=== PATIENT | female | born 1990 | race Caucasian/White ===

== ENCOUNTER 2020-12-20 11:04 | Day surgery (SDC) | payer BC ==
[~2020-12-20 11:04] MED LIST: Bupivacaine 0.25% 10 ML SDV ONE; EPINEPHrine 1 MG/ML 30 ML MDV IRR SCH; EPINEPHrine 1 MG/ML SDV ONE; Lactated Ringers 1,000 ML IV SCH; Lidocaine 1%/Sod Bicarbonate in NS 8.4% 1 ML Syringe IDERM PRN; Sodium Chloride 0.9% 10 ML Syringe FLUSH PRN; Triamcinolone Acetonide 40 MG/ML 1 ML SDV ONE
[2020-12-20] MEDS ORDERED: fentaNYL 250 MCG/5 ML SDV ONE (11:24)
[2020-12-20] MEDS ORDERED: Midazolam 1 MG/ML 2 ML SDV ONE (11:24)
[2020-12-20] MEDS ORDERED: Ondansetron 4 MG/2 ML SDV ONE (11:24)
[2020-12-20] MEDS ORDERED: Propofol 200 MG/20 ML SDV ONE (11:24)
[2020-12-20] MEDS ORDERED: Lidocaine 1% 4 ML ONE (11:25)
[2020-12-20] MEDS ORDERED: ceFAZolin 1 GM Vial ONE (11:25)
--- NOTE | 2020-12-20 11:32 | PCM.PREANE ---
Preanesthetic Assessment - Procedure Proposed Procedure: Right knee video arthroscopy - Anesthesia/Transfusion/Family Hx Anesthesia History: Prior Anesthesia Without Reaction Family History of Anesthesia Reaction: No Transfusion History: No Prior Transfusion(s) - Review of Systems General: No Symptoms Pulmonary: No Symptoms Cardiovascular: No Symptoms, Edema Gastrointestinal: No Symptoms Neurological: No Symptoms Other: Reports: None - Physical Assessment NPO Status Date: 12/19/20 NPO Status Time: 00:00 Height: 1.7 m Weight: 70.7 kg ASA Class: 1 Mental Status: Alert & Oriented x3 Airway Class: Mallampati = 1 Dentition: Reports: Normal Dentition Thyro-Mental Finger Breadths: 3 Mouth Opening Finger Breadths: 3 ROM/Head Extension: Full Lungs: Clear to Auscultation Cardiovascular: Regular Rate, Regular Rhythm - Allergies Allergies/Adverse Reactions: Allergies Allergy/AdvReac Type Severity Reaction Status Date / Time No Known Allergies Allergy Verified 12/19/20 13:19 - Blood Blood Available: No Product(s) Available: None - Anesthesia Plan Pre-Op Medication Ordered: None - Acknowledgements Anesthesia Type Planned: General Anesthesia Pt an Appropriate Candidate for the Planned Anesthesia: Yes Alternatives and Risks of Anesthesia Discussed w Pt/Guardian: Yes Pt/Guardian Understands and Agrees with Anesthesia Plan: Yes PreAnesthesia Questionnaire HEENT History: Reports: None Respiratory History: Reports: None Gastrointestinal History: Reports: None Genitourinary History: Reports: None CRISIS MANAGER History: Reports: Other (See Below) Other OB/BYN History: endometriosis with surgery Musculoskeletal History: Reports: None Neurological History: Reports: None Psychiatric History: Reports: None Endocrine/Metabolic History: Reports: None Hematologic History: Reports: None Immunologic History: Reports: None Oncologic (Cancer) History: Reports: None Dermatologic History: Reports: None - Infectious Disease History Infectious Disease History: Reports: None - Past Surgical History Head Surgeries/Procedures: Reports: None HEENT Surgical History: Reports: Tonsillectomy Cardiovascular Surgical History: Reports: Vascular Surgery Respiratory Surgical History: Reports: None GI Surgical History: Reports: None Female Surgical History: Reports: None Male Surgical History: Reports: None Endocrine Surgical History: Reports: None Neurological Surgical History: Reports: None Musculoskeletal Surgical History: Reports: None Oncologic Surgical History: Reports: None Dermatological Surgical History: Reports: None - SUBSTANCE USE Tobacco Use Status *Q: Never Tobacco User Tobacco Use Within Last Twelve Months: No Second Hand Smoke Exposure: No Days Per Week of Alcohol Use: 1 Number of Drinks Per Day: 2 Total Drinks Per Week: 2 Recreational Drug Use History: No - HOME MEDS Home Medications: Home Meds Aspirin [Aspirin EC] 325 mg PO BID #84 tab 12/19/20 [Rx] Ethinyl Estradiol/Drospirenone [Ocella 3 MG-0.03 MG] 1 tab PO DAILY 12/19/20 [History] Hydrocodone/Acetaminophen [HYDROcodone-Acetaminophen 5-325 MG] 1 - 2 each PO Q6H PRN #12 tablet 12/19/20 [Rx] - CURRENT (IN HOUSE) MEDS Current Meds: Current Medications Epinephrine HCl (Epinephrine 1 Mg/Ml 30 Ml Mdv) 3 mg IRR ONETIME JASMIN Stop: 12/20/20 15:00 Lactated Ringer's (Ringers, Lactated) 1,000 mls @ 125 mls/hr IV ASDIRECTED JASMIN Stop: 12/20/20 23:00 Lidocaine/Sodium Bicarbonate (Lidocaine 1%/Sod Bicarbonate In Ns 8.4% 1 Ml Syringe) 0.25 ml IDERM ONETIME PRN PRN Reason: Prior to IV Start Stop: 12/20/20 18:00 Sodium Chloride (Sodium Chloride 0.9% 10 Ml Syringe) 10 ml FLUSH ASDIRECTED PRN PRN Reason: Keep Vein Open Stop: 12/20/20 18:00 Discontinued Medications Bupivacaine HCl (Bupivacaine 0.25% 10 Ml Sdv) Confirm Administered Dose 10 ml .ROUTE .STK-MED ONE Stop: 12/20/20 11:05 Epinephrine HCl (Epinephrine 1 Mg/Ml Sdv) Confirm Administered Dose 3 mg .ROUTE .STK-MED ONE Stop: 12/20/20 11:05 Triamcinolone Acetonide (Triamcinolone Acetonide 40 Mg/Ml 1 Ml Sdv) Confirm Administered Dose 40 mg .ROUTE .STK-MED ONE Stop: 12/20/20 11:05
[2020-12-20] MEDS ORDERED: Lactated Ringers 1,000 ML ONE (12:49)
[2020-12-20] MEDS ORDERED: Ketorolac 30 MG/ML SDV ONE (12:50)
[2020-12-20] MEDS ORDERED: fentaNYL 100 MCG/2 ML SDV IVPUSH STA (13:18)
[2020-12-20] MEDS ORDERED: fentaNYL 100 MCG/2 ML SDV IVPUSH PRN (13:20)
[2020-12-20] MEDS ORDERED: HYDROmorphone 0.5 MG/0.5 ML Syringe IVPUSH PRN (13:20)
--- NOTE | 2020-12-20 13:22 | PCM.POSTAN ---
POST ANESTHESIA ASSESSMENT - MENTAL STATUS Mental Status: Alert, Oriented - VITAL SIGNS Vital Signs: Last Vital Signs Temp 37.4 C 12/20/20 11:10 Pulse 87 12/20/20 11:10 Resp 17 12/20/20 11:10 BP 113/97 H 12/20/20 11:10 Pulse Ox 96 12/20/20 11:10 - RESPIRATORY Respiratory Status: Respiratory Rate WNL, Airway Patent, O2 Saturation Stable, Supplemental Oxygen - CARDIOVASCULAR CV Status: Pulse Rate WNL, Blood Pressure Stable - GASTROINTESTINAL GI Status: No Symptoms - PAIN Pain Score: 8 - POST OP HYDRATION Hydration Status: Adequate & Stable
[2020-12-20] MEDS ORDERED: Acetaminophen/HYDROcodone 325-5 MG Tab PO PRN (13:37)
--- NOTE | 2020-12-20 15:04 | PCM48HPAN ---
Post Anesthesia Note - EVALUATION WITHIN 48HRS OF ANESTHETIC Vital Signs in Normal Range: Yes Patient Participated in Evaluation: Yes Respiratory Function Stable: Yes Airway Patent: Yes Cardiovascular Function Stable: Yes Hydration Status Stable: Yes Pain Control Satisfactory: Yes Nausea and Vomiting Control Satisfactory: Yes Mental Status Recovered: Yes Vital Signs: Last Vital Signs Temp 36.7 C 12/20/20 14:00 Pulse 71 12/20/20 14:30 Resp 16 12/20/20 14:30 BP 124/89 12/20/20 14:30 Pulse Ox 97 12/20/20 14:30
[2020-12-20] MEDS ORDERED: Ketorolac 15 MG/ML SDV IVPUSH ONE (18:39)
[2020-12-20] MEDS ORDERED: Acetaminophen/HYDROcodone 325-5 MG Tab PO ONE (18:40)
[2020-12-20] MEDS ORDERED: Ondansetron 4 MG Tab.DIS PO ONE (18:45)
[2020-12-20] MEDS ORDERED: Albuterol 0.083% 2.5 MG/3 ML Neb Soln NEB ONE (18:45)
--- NOTE | 2020-12-31 17:44 | PCM.OPNOTE ---
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
--- NOTE | 2020-12-31 18:25 | OR ---
DATE OF OPERATION: 12/20/2020 SURGEON: Bunny Ronquillo MD OPERATION PERFORMED: Right knee video arthroscopy with plica resection and partial fat pad resection. PREOPERATIVE DIAGNOSIS: Right knee plica syndrome. POSTOPERATIVE DIAGNOSIS: Right knee plica syndrome. ANESTHESIA: Technique: General LMA with local. ANESTHESIA PROVIDER: Leandro Menchaca CRNA ASSISTANTS: Rosita Garcia PA-C ESTIMATED BLOOD LOSS: 5 mL. COMPLICATIONS: None. CONDITION: Stable. DESCRIPTION OF PROCEDURE: The patient was identified in the preoperative holding area. Proper site was marked and identified by the surgeon. The patient was taken back to the operating theater where after adequate anesthesia, the patient's right lower extremity had a nonsterile tourniquet applied and was placed in a C-clamp de leon. Left lower extremity was placed in a well leg de leon. Foot of the bed was then lowered. Right lower extremity was then sterilely prepped and draped in the usual sterile fashion. OR time-out was performed. The patient received 2 g IV Ancef. Right lower extremity was exsanguinated. Tourniquet was insufflated to 250 mmHg. Anterolateral portal incision was made. Scope trocar was introduced. The patient was noted to have significant hypertrophy as well as synovitis of the fat pad. She was noted to have a superior plica as well as the medial plica. At this time, attention was turned to medial compartment. Anteromedial portal was created. The medial compartment showed just a small amount of chondromalacia on the medial femoral condyle. Otherwise, no meniscal tear was noted. ACL was intact in the notch. Lateral compartment showed no chondromalacia changes and no lateral meniscus tear. At this time, the superior as well as medial plica were then resected as well as partial resection of the fat pad back to a stable rim so it would not impinge in the patellofemoral joint. Excess saline was drained from the knee. 3-0 nylon sutures were used for closure of the skin. 0.25% Marcaine was injected. The patient was placed in a sterile, soft dressing and sent to the PACU in stable condition. MMODAL /[id number]
== END 2020-12-20 20:24 | disposition home or self-care (01) ==
LOC: JD.SDS 11:04 → JD.OB 17:55 → JD.SDS 20:24
PROVIDERS: ATTEND Orthopaedic Surgery
DX: M67.51 Plica syndrome, right knee (principal); Z98.890 Other specified postprocedural states; Z79.899 Other long term (current) drug therapy; Z20.822 Contact with and (suspected) exposure to COVID-19
CPT/HCPCS: 29875; 81025; 94640; A9270; J0171; J0690; J1170; J1885; J2250; J2405; J2704; J3010; J3301; J3490; J7120; 01400

== ENCOUNTER 2022-09-19 17:33 | Inpatient (IN) | payer BC ==
[2022-09-19] MEDS ORDERED: Citric Acid/Sodium Citrate Solution 30 ML Cup PO ONE (18:41)
[2022-09-19] MEDS ORDERED: ceFAZolin 1 GM in Sodium Chloride 0.9% 50 ML IV ONE (18:41)
[2022-09-19] MEDS ORDERED: Ondansetron 4 MG/2 ML SDV IVPUSH PRN ×2 (18:41→19:42)
[2022-09-19] MEDS ORDERED: Metoclopramide 10 MG/2 ML SDV IVPUSH ONE (18:41)
[2022-09-19] MEDS ORDERED: Sodium Chloride 0.9% 10 ML Syringe FLUSH PRN (18:41)
[2022-09-19] MEDS ORDERED: Bupivacaine 0.5% 30 ML SDV ONE (18:44)
[2022-09-19] MEDS ORDERED: Oxytocin/Lactated Ringers 10 UNIT/1,000 ML BAG IV SCH (18:45)
[2022-09-19] MEDS ORDERED: Lactated Ringers 1,000 ML IV SCH (18:45)
[2022-09-19 18:57] LABS: BASOPHILS ABSOLUTE AUTO 0.01 K/mm3 (0.01-0.08); BASOPHILS PERCENT AUTO 0.1 % (0.1-1.2); EOSINOPHILS ABSOLUTE AUTO 0.01 K/mm3 (0.04-0.36); EOSINOPHILS PERCENT AUTO 0.1 (0.7-5.8); HEMATOCRIT 36.1 % (34.1-44.9); HEMOGLOBIN 11.4 gm/dl (11.2-15.7); IMMATURE GRAN ABSOLUTE AUTO 0.08 K/mm3 (0.00-0.10); IMMATURE GRAN PERCENT AUTO 0.9 % (<=1.0); LYMPHOCYTES ABSOLUTE AUTO 1.89 K/mm3 (1.18-3.74); LYMPHOCYTES PERCENT AUTO 20.4 % (19.3-51.7); MEAN CORPUSCULAR HEMOGLOBIN 29.2 pg (25.6-32.2); MEAN CORPUSCULAR HGB CONC 31.6 g/dl (32.2-35.5); MEAN CORPUSCULAR VOLUME 92.3 fl (79.4-94.8); MONOCYTES ABSOLUTE AUTO 0.54 K/mm3 (0.24-0.36); MONOCYTES PERCENT AUTO 5.8 % (4.7-12.5); NEUTROPHILS ABSOLUTE AUTO 6.74 K/mm3 (1.56-6.13); NEUTROPHILS PERCENT AUTO 72.7 % (34.0-71.1); PLATELET COUNT,PLT 163 K/mm3 (182-369); RED BLOOD CELL COUNT 3.91 M/mm3 (3.98-5.22); WHITE BLOOD CELL COUNT,WBC 9.27 K/mm3 (3.98-10.04)
[2022-09-19] MEDS ORDERED: fentaNYL 100 MCG/2 ML SDV ONE (19:04)
[2022-09-19] MEDS ORDERED: Morphine PF 10 MG/10 ML SDV ONE (19:05)
[2022-09-19] MEDS ORDERED: ceFAZolin 2 GM Vial ONE (19:07)
[2022-09-19] MEDS ORDERED: Oxytocin 10 Units/1 ML SDV ONE ×2 (19:11→19:56)
[2022-09-19] MEDS ORDERED: Lactated Ringers 1,000 ML ONE (19:40)
[2022-09-19] MEDS ORDERED: diphenhydrAMINE 50 MG/ML SDV IVPUSH PRN ×2 (19:42→22:58)
[2022-09-19] MEDS ORDERED: fentaNYL 100 MCG/2 ML SDV IVPUSH PRN (19:42)
[2022-09-19] MEDS ORDERED: Ondansetron 4 MG/2 ML SDV ONE (19:57)
[2022-09-19] MEDS ORDERED: Ketorolac 30 MG/ML SDV ONE (19:58)
[2022-09-19] MEDS ORDERED: Sodium Chloride 0.9% 10 ML Syringe FLUSH SCH (21:00)
[2022-09-19] MEDS ORDERED: Acetaminophen/oxyCODONE 325-5 MG Tab PO PRN (22:58)
[2022-09-19] MEDS ORDERED: Naloxone 0.4 MG/ML SDV IVPUSH PRN (22:58)
[2022-09-19] MEDS ORDERED: ePHEDrine 50 MG/ML SDV IVPUSH PRN (22:58)
[2022-09-19] MEDS ORDERED: Ibuprofen 600 MG Tab PO PRN (22:58)
[2022-09-19] MEDS ORDERED: Dextrose 5%-Lactated Ringers 1,000 ML IV SCH (22:58)
[2022-09-20] MEDS ORDERED: Ketorolac 30 MG/ML SDV IVPUSH SCH
[2022-09-20 06:33] LABS: BASOPHILS ABSOLUTE AUTO 0.01 K/mm3 (0.01-0.08); BASOPHILS PERCENT AUTO 0.1 % (0.1-1.2); EOSINOPHILS ABSOLUTE AUTO 0.01 K/mm3 (0.04-0.36); EOSINOPHILS PERCENT AUTO 0.1 (0.7-5.8); HEMATOCRIT 34.9 % (34.1-44.9); HEMOGLOBIN 10.8 gm/dl (11.2-15.7); IMMATURE GRAN ABSOLUTE AUTO 0.05 K/mm3 (0.00-0.10); IMMATURE GRAN PERCENT AUTO 0.4 % (<=1.0); LYMPHOCYTES ABSOLUTE AUTO 2.04 K/mm3 (1.18-3.74); LYMPHOCYTES PERCENT AUTO 18.2 % (19.3-51.7); MEAN CORPUSCULAR HEMOGLOBIN 28.5 pg (25.6-32.2); MEAN CORPUSCULAR HGB CONC 30.9 g/dl (32.2-35.5); MEAN CORPUSCULAR VOLUME 92.1 fl (79.4-94.8); MEAN PLATELET VOLUME 11.4 fl (9.4-12.3); MONOCYTES ABSOLUTE AUTO 0.67 K/mm3 (0.24-0.36); NEUTROPHILS PERCENT AUTO 75.2 % (34.0-71.1); PLATELET COUNT,PLT 166 K/mm3 (182-369); RED BLOOD CELL COUNT 3.79 M/mm3 (3.98-5.22); WHITE BLOOD CELL COUNT,WBC 11.18 K/mm3 (3.98-10.04)
[2022-09-20] MEDS: Ketorolac 30 MG/ML SDV IVPUSH SCH ×2 (10:07→17:54)
[2022-09-20] MEDS: Acetaminophen/oxyCODONE 325-5 MG Tab PO PRN ×2 (12:34→20:51)
[2022-09-20] MEDS ORDERED: Docusate Sodium 100 MG Cap PO ONE (20:52)
[2022-09-21] MEDS: Acetaminophen/oxyCODONE 325-5 MG Tab PO PRN (04:12)
== END 2022-09-21 13:05 | disposition home or self-care (01) | DRG 540 ==
LOC: JD.OB 17:33
PROVIDERS: ADMIT Obstetrics & Gynecology; ATTEND Obstetrics & Gynecology
PROC: 10D00Z1 Extraction of Products of Conception, Low, Open Approach (ICD-10-PCS; principal; 2022-09-19)
DX: O34.219 Maternal care for unspecified type scar from previous cesarean delivery (principal); O24.420 Gestational diabetes mellitus in childbirth, diet controlled; Z37.0 Single live birth; Z3A.38 38 weeks gestation of pregnancy; Z79.82 Long term (current) use of aspirin; Z79.899 Other long term (current) drug therapy; Z90.89 Acquired absence of other organs; Z98.890 Other specified postprocedural states
CPT/HCPCS: 36415; 59025; 82947; 85025; 86592; 86850; 86870; 86900; 86901; A9270-GY; J0690; J1200; J1885; J2274; J2405; J2590; J2765; J3010; J3490; J7120